=== PATIENT | female | born 1995 | race Caucasian/White ===

== ENCOUNTER 2017-03-15 13:49 | Emergency (ER) | payer SELFPAY ==
[2017-03-15 13:50] VITALS: BP 142/83; PULSE 107; RESP 14; TEMP 99.2; O2SAT 99
--- NOTE | 2017-03-15 14:31 | PD ---
Physical Exam Date Seen by Provider: Mar 15, 2017 Time Seen by Provider: 14:29 Data Data Last Documented VS Vital Signs Date Time Temp Pulse Resp B/P Pulse Ox O2 Delivery O2 Flow Rate FiO2 03/15/17 13:50 99.2 107 14 142/83 99 MDM Supervised Visit with ZACKERY: No Narrative Course 21 YO F with complaint 10/ constant, stabbing lower abdominal pain x 1 week, worsened yesterday. --F/C, N/V/D. LMP 19 February. Vitals reviewed. Seen in triage, awaiting bed placement. Yeimi Landeros Mar 15, 2017 14:31
[2017-03-15] MEDS ORDERED: METR-1 PO (21:43)
[2017-03-15] MEDS ORDERED: HYDR-3533 PO (21:43)
== END 2017-03-15 17:30 | disposition left against medical advice (07) ==
LOC: EDBD → NED 13:49
DX: R10.30 Lower abdominal pain, unspecified (principal); Z53.21 Procedure and treatment not carried out due to patient leaving prior to being seen by health care provider
CPT/HCPCS: 99281

== ENCOUNTER 2017-03-15 16:20 | Emergency (ER) | payer OTHER ==
[~2017-03-15] VITALS: Ht 172.7 cm; Wt 72.0 kg
[2017-03-15 16:27] VITALS: BP 116/75; PULSE 84; RESP 16; TEMP 98.3; O2SAT 98
[2017-03-15 16:36] LABS: BLOOD, URINE NEG (NEG); GLUCOSE,URINE NEG (NEG); KETONE, URINE NEG (NEG); NITRITE,URINE NEG (NEG); PH, URINE 6.5 (5.0-8.5)
[2017-03-15 16:39] LABS: METHOD OF COLLECTION CLEAN CATCH; URINE COLOR YELLOW (YELLW/STRAW)
[2017-03-15 16:42] LABS: BACTERIA, URINE FEW /hpf; COMMENT (UR) CULT NOT INDICATED; COMMENT2 (UR) MUCOUS PRESENT; CULTURE IF INDICATED CULT NOT INDICATED; SQUAMOUS EPITHELIAL CELL URINE > 8 /hpf (0-5)
--- NOTE | 2017-03-15 16:53 | PD ---
HPI Chief Complaint: Abdominal Pain Time Seen by Provider: 16:41 Travel History International Travel<30 days: No Contact w/Intl Traveler<30days: No Traveled to known affect area: No History of Present Illness HPI 21-year-old female here for evaluation of worsening lower abdominal cramping over the last 4 days. Pain is described as cramping, moderate to severe, sometimes better when she lays in the position with a heating pack over her lower abdomen. No history of abdominal surgeries. Her last mental period was 3 weeks ago. She denies vaginal bleeding or discharge. No urinary symptoms. No fevers or chills. No nausea or vomiting. She is sexually active with one partner and believe she is in a monogamous relationship. PFSH Past Medical History ?: Not LMP: 2.5 WEEKS Social History Tobacco Use: No (quit one year ago) Allergies-Medications (Allergen,Severity, Reaction): Uncoded Allergies: midol (Adverse Reaction, Intermediate, heart races, 03/15/17) Reported Meds & Prescriptions Reported Meds & Active Scripts Active Lortab (Hydrocodone-Acetaminophen) 5-325 Mg Tab 1 Tab PO Q6H PRN Flagyl (Metronidazole) 500 Mg Tab 500 Mg PO BID 7 Days Review of Systems Except as stated in HPI: all other systems reviewed are Neg Physical Exam Narrative GENERAL: Well-developed, well-nourished, comfortable, no acute distress. SKIN: Focused skin assessment warm/dry. HEAD: Atraumatic. Normocephalic. EYES: Pupils equal and round. No scleral icterus. No injection or drainage. ENT: Mucous membranes pink and moist. CARDIOVASCULAR: Regular rate and rhythm. No murmur appreciated. RESPIRATORY: No accessory muscle use. Clear to auscultation. Breath sounds equal bilaterally. GASTROINTESTINAL: Abdomen soft, nondistended. Mild to moderate suprapubic tenderness/lower abdominal tenderness without peritoneal signs. Rest of abdomen is soft and nontender. Normal bowel sounds. LOCAL TRUCK DRIVER: Exam performed in the presence of female nurse. Normal external genitalia. Normal cervix. Scant/whitish/oye-rfbc-hiwjqowg vaginal discharge. No adnexal masses. No CMT. Mild uterine tenderness. MUSCULOSKELETAL: No obvious deformities. No clubbing. No cyanosis. No edema. NEUROLOGICAL: Awake and alert. No obvious cranial nerve deficits. Motor grossly within normal limits. Normal speech. PSYCHIATRIC: Appropriate mood and affect; insight and judgment normal. Data Data Last Documented VS Vital Signs Date Time Temp Pulse Resp B/P Pulse Ox O2 Delivery O2 Flow Rate FiO2 03/15/17 21:49 78 17 99 03/15/17 21:20 124/70 Room Air 03/15/17 16:27 98.3 Orders Urinalysis - C+S If Indicated (03/15/17 16:29) Ed Urine Pregnancytest Poc (03/15/17 16:37) Beta Hcg (Quant/Titer) (03/15/17 17:04) Complete Blood Count With Diff (03/15/17 17:04) Comprehensive Metabolic Panel (03/15/17 17:04) Prothrombin Time / Inr (Pt) (03/15/17 17:04) Act Partial Throm Time (Ptt) (03/15/17 17:04) Ct Abd/Pel W Iv Contrast(Rout) (03/15/17 17:04) Iv Access Insert/Monitor (03/15/17 17:04) Ecg Monitoring (03/15/17 17:04) Oximetry (03/15/17 17:04) Morphine Inj (Morphine Inj) (03/15/17 17:15) Sodium Chlor 0.9% 1000 Ml Inj (Ns 1000 M (03/15/17 17:04) Sodium Chloride 0.9% Flush (Ns Flush) (03/15/17 17:15) Oral Contrast - Adult (03/15/17 17:06) Ondansetron Inj (Zofran Inj) (03/15/17 17:15) Diatrizoate Liq ( Gastroview Liq) (03/15/17 17:13) Iohexol 350 Inj (Omnipaque 350 Inj) (03/15/17 18:36) Gc And Chlamydia Pcr (03/15/17 19:09) Wet Prep Profile (03/15/17 19:09) Us Pelvis Comp W Doppler (03/15/17 19:09) Ketorolac Inj (Toradol Inj) (03/15/17 19:15) Metronidazole (Flagyl) (03/15/17 21:45) Morphine Inj (Morphine Inj) (03/15/17 21:45) Labs Laboratory Tests Test 03/15/17 03/15/17 03/15/17 16:26 17:25 19:30 Urine Collection Type CLEAN CATCH Urine Color YELLOW Urine Turbidity SLIGHT Urine pH 6.5 Urine Specific [place] 1.025 Urine Protein NEG mg/dL Urine Glucose (UA) NEG mg/dL Urine Ketones NEG mg/dL Urine Occult Blood NEG Urine Nitrite NEG Urine Bilirubin NEG Urine Leukocyte Esterase TRACE Urine WBC 3-5 /hpf Urine Squamous Epithelial > 8 /hpf Cells Urine Amorphous Sediment LARGE Urine Bacteria FEW /hpf Microscopic Urinalysis Comment CULT NOT INDICATED Urine Collection Time 1626 White Blood Count 8.9 TH/MM3 Red Blood Count 4.29 MIL/MM3 Hemoglobin 13.4 GM/DL Hematocrit 38.8 % Mean Corpuscular Volume 90.6 FL Mean Corpuscular Hemoglobin 31.3 PG Mean Corpuscular Hemoglobin 34.5 % Concent Red Cell Distribution Width 12.6 % Platelet Count 312 TH/MM3 Mean Platelet Volume 6.5 FL Neutrophils (%) (Auto) 72.7 % Lymphocytes (%) (Auto) 20.2 % Monocytes (%) (Auto) 4.8 % Eosinophils (%) (Auto) 1.2 % Basophils (%) (Auto) 1.1 % Neutrophils # (Auto) 6.5 TH/MM3 Lymphocytes # (Auto) 1.8 TH/MM3 Monocytes # (Auto) 0.4 TH/MM3 Eosinophils # (Auto) 0.1 TH/MM3 Basophils # (Auto) 0.1 TH/MM3 CBC Comment DIFF FINAL Differential Comment Prothrombin Time 12.7 SEC Prothromb Time International 1.1 RATIO Ratio Activated Partial 28.0 SEC Thromboplast Time Sodium Level 142 MEQ/L Potassium Level 3.7 MEQ/L Chloride Level 105 MEQ/L Carbon Dioxide Level 28.2 MEQ/L Anion Gap 9 MEQ/L Blood Urea Nitrogen 13 MG/DL Creatinine 0.80 MG/DL Estimat Glomerular Filtration 91 ML/MIN Rate Random Glucose 84 MG/DL Calcium Level 8.4 MG/DL Total Bilirubin 0.3 MG/DL Aspartate Amino Transf 17 U/L (AST/SGOT) Alanine Aminotransferase 22 U/L (ALT/SGPT) Alkaline Phosphatase 68 U/L Total Protein 7.3 GM/DL Albumin 3.9 GM/DL Human Chorionic Gonadotropin, LESS THAN 1 Quant MIU/ML Clue Cells (Wet Prep) PRESENT Vaginal Trichomonas (Wet Prep) NONE SEEN Vaginal Yeast (Wet Prep) NONE SEEN Chlamydia trachomatis DNA DETECTED (PCR) Neisseria gonorrhoeae DNA NOT DETECTED (PCR) [facility] Medical Decision Making Medical Screen Exam Complete: Yes Emergency Medical Condition: Yes Differential Diagnosis Appendicitis, UTI, cystitis, colitis, irritable bowel syndrome, ovarian cyst, ovarian torsion, , ectopic Narrative Course Vital signs show heart rate 84, blood pressure 116/75, pulse ox 98% on room air , oral temp of 98.3F. CBC is essentially unremarkable. CMP is unremarkable. Beta hCG is negative. UA shows trace leukocyte esterase, greater than 8 epithelial cells, few bacteria , not suggestive of UTI. CT abdomen pelvis: CONCLUSION: 1. No definite acute finding is identified in the abdomen or pelvis. 2. However, there is a small volume of free fluid in the posterior cul-de-sac within the pelvis that appears possibly complex or the appearance could be related to enhancing right ovary within the fluid. If the patient is having any pelvic symptoms consider further characterization with transabdominal/ transvaginal pelvis ultrasound. Patient was made aware of all findings. Pelvic ultrasound will be performed in the emergency department and she is still having some pain after receiving morphine. Wet prep is positive for clue cells, negative for yeast, negative for Trichomonas. Pelvic ultrasound: CONCLUSION: Small volume of simple free fluid in the pelvis. Otherwise, no acute finding is identified. Patient was made aware of all findings. She is resting comfortably. She is still having slight pain. I will give her one more dose of pain medication and will give her a dose of Flagyl here as well as a prescription to take home. Patient is stable for discharge home with outpatient follow-up with an [employer] [employer] doctor this week. She was informed on when to return to the emergency department which verbalizes understanding and agreement with plan. Diagnosis Primary Impression: Bacterial vaginosis Additional Impression: Abdominal pain Qualified Code: R10.30 - Lower abdominal pain Referrals: Maryana Brower MD 3 days [facility] Primary Care Physician 3 days Additional Instructions: Follow-up with a primary care physician this week. Follow-up with plastics nurse Dr. Brower or plastics nurse of your choice this week. Return to the emergency department for worsening symptoms or any other concerns. Scripts Hydrocodone-Acetaminophen (Lortab)5-325 Mg Tab1 Tab PO Q6H PRN (PAIN) #15 TAB Ref 0 Prov:Spencer West MD 03/15/17 Metronidazole (Flagyl)500 Mg Zbh103 Mg PO BID 7 Days Ref 0 Prov:Spencer West MD 03/15/17 Disposition: 01 DISCHARGE HOME Condition: Stable Spencer West MD Mar 15, 2017 16:53
[2017-03-15 17:07] VITALS: RESP 16; O2SAT 99
[2017-03-15] MEDS ORDERED: DIATRIZOATE MEGLUM/DIATRIZOATE SOD 9 ML CUP ONE (17:13)
[2017-03-15] MEDS ORDERED: MORPHINE SULFATE 4 MG/ML INJ IV PUSH ONE ×2 (17:15→21:45)
[2017-03-15] MEDS ORDERED: SODIUM CHLORIDE 0.9% FLUSH 10 ML FLUSH IV FLUSH PRN (17:15)
[2017-03-15] MEDS ORDERED: ONDANSETRON HCL 4 MG/2 ML VIAL IV PUSH ONE (17:15)
[2017-03-15] MEDS: SODIUM CHLOR 0.9% 1000 ML INJ 1,000 ML IV SCH ×2 (17:25→19:28)
[2017-03-15 17:30] VITALS: BP 131/69; PULSE 76; RESP 16; O2SAT 99
[2017-03-15 17:31] LABS: AUTOMATED NEUTROPHIL # 6.5 TH/MM3 (1.8-7.7); BASOPHIL # 0.1 TH/MM3 (0-0.2); BASOPHIL % 1.1 % (0.0-2.0); EOSINOPHIL # 0.1 TH/MM3 (0-0.4); EOSINOPHIL % 1.2 % (0.0-4.0); HEMATOCRIT 38.8 % (35.0-46.0); HEMO FLAGS DIFF FINAL; LYMPH % 20.2 % (9.0-44.0); LYMPHOCYTE # 1.8 TH/MM3 (1.0-4.8); MEAN CELL VOLUME 90.6 FL (80.0-100.0); MEAN CORPUSCULAR HEMOGLOBIN 31.3 PG (27.0-34.0); MEAN CORPUSCULAR HGB CONC 34.5 % (32.0-36.0); MONO % 4.8 % (0.0-8.0); NEUT % 72.7 % (16.0-70.0); PLATELET COUNT 312 TH/MM3 (150-450); RED BLOOD COUNT 4.29 MIL/MM3 (4.00-5.30); RED CELL DISTRIBUTION WIDTH 12.6 % (11.6-17.2); WHITE BLOOD COUNT 8.9 TH/MM3 (4.0-11.0)
[2017-03-15 17:39] LABS: CHLORIDE 105 MEQ/L (98-107); POTASSIUM 3.7 MEQ/L (3.5-5.1); SODIUM (NA) 142 MEQ/L (136-145)
[2017-03-15 17:43] LABS: ANION GAP 9 MEQ/L (5-15); BICARBONATE 28.2 MEQ/L (21.0-32.0); BLOOD UREA NITROGEN 13 MG/DL (7-18)
[2017-03-15 17:45] LABS: INTERNATIONAL NORMALIZED RATIO 1.1 RATIO; PROTHROMBIN TIME - PATIENT 12.7 SEC (9.8-11.6)
[2017-03-15 17:46] LABS: ALT (GPT) 22 U/L (10-53); AST (GOT) 17 U/L (15-37); GLOMERULAR FILTRATION RATE 91 ML/MIN (>89)
[2017-03-15 17:47] LABS: TOTAL BILIRUBIN ADULT 0.3 MG/DL (0.2-1.0)
[2017-03-15 17:49] LABS: ALKALINE PHOSPHATASE 68 U/L (45-117)
[2017-03-15 17:51] LABS: BETA HCG QUANT LESS THAN 1 MIU/ML (0-5)
[2017-03-15] MEDS ORDERED: IOHEXOL 350 MG/ML 10 ML VIAL (for RAD DIAG) IV ONE (18:36)
--- NOTE | 2017-03-15 19:03 | RADRPT ---
EXAM DATE/TIME: 03/15/2017 18:26 [facility] COMPARISON: No previous studies available for comparison. INDICATIONS : Abdominal pain. IV CONTRAST: 100 cc Omnipaque 350 (iohexol) IV ORAL CONTRAST: Prescribed oral contrast ingested. RADIATION DOSE: 8.92 CTDIvol (mGy) MEDICAL HISTORY : None SURGICAL HISTORY : None. ENCOUNTER: Initial ACUITY: 4 - 6 days PAIN SCALE: 8/10 LOCATION: lower quadrant abdomen TECHNIQUE: Volumetric scanning of the abdomen and pelvis was performed. Using automated exposure control and ad justment of the mA and/or kV according to patient size, radiation dose was kept as low as reasonably achievable to obtain optimal diagnostic quality images. FINDINGS: LOWER LUNGS: The visualized lower lungs are clear. LIVER: Homogeneous density without lesion. There is no dilation of the biliary tree. No calcified gallston es. SPLEEN: Normal size without lesion. PANCREAS: Within normal limits. KIDNEYS: Normal in size and shape. There is no mass, stone or hydronephrosis. ADRENAL GLANDS: Within normal limits. VASCULAR: There is no aortic aneurysm. BOWEL/MESENTERY: The stomach, small bowel, and colon demonstrate no acute abnormality. There is no free intraperitone al air. There is a small volume of free fluid in the posterior cul-de-sac that appears mildly complex . The appendix is normal. ABDOMINAL WALL: Within normal limits. RETROPERITONEUM: There is no lymphadenopathy. BLADDER: No wall thickening or mass. REPRODUCTIVE: Uterus and left adnexa a normal appearance. There is a small view of volume of free fluid in the post erior cul-de-sac with areas of enhancement within the fluid which could be related to complexity or c ould be associated with the right ovary. INGUINAL: There is no lymphadenopathy or hernia. MUSCULOSKELETAL: Within normal limits for patient age. CONCLUSION: 1. No definite acute finding is identified in the abdomen or pelvis. 2. However, there is a small volume of free fluid in the posterior cul-de-sac within the pelvis that appears possibly complex or the appearance could be related to enhancing right ovary within the fluid . If the patient is having any pelvic symptoms consider further characterization with transabdominal/ transvaginal pelvis ultrasound. Roddy Cooley MD on March 15, 2017 at 18:55 Board Certified Radiologist. This report was verified electronically.
[2017-03-15 19:10] VITALS: BP 131/69; PULSE 82; RESP 18; O2SAT 98
[2017-03-15] MEDS ORDERED: KETOROLAC TROMETHAMINE 30 MG/ML (IVP) VIAL IV PUSH ONE (19:15)
[2017-03-15 20:29] VITALS: BP 128/81; PULSE 81; RESP 17; O2SAT 98
[2017-03-15 21:20] VITALS: BP 124/70; PULSE 78; RESP 16; O2SAT 98
--- NOTE | 2017-03-15 21:30 | RADRPT ---
EXAM DATE/TIME: 03/15/2017 19:56 [facility] COMPARISON: CT ABDOMEN & PELVIS W CONTRAST, March 15, 2017, 18:26. INDICATIONS : Pelvic pain. MEDICAL HISTORY : Pelvic pain. SURGICAL HISTORY : None. ENCOUNTER: Initial ACUITY: 4-6 days PAIN SCORE: 8/10 LOCATION: Bilateral pelvis MEASUREMENTS: UTERUS: 7.6 x 4.6 x 3.4 cm ENDOMETRIAL STRIPE: 12 mm RIGHT OVARY: 3.8 x 3.7 x 2.5 cm LEFT OVARY: 2.8 x 2.3 x 1.9 cm FINDINGS: UTERUS: The myometrium has homogeneous echotexture without mass. RIGHT OVARY: Ovary contains no mass or significant cystic lesion. Blood flow is documented. LEFT OVARY: Ovary contains no mass or significant cystic lesion. Blood flows document. MISCELLANEOUS: There is a small amount of free fluid in the posterior cul-de-sac and adnexal regions. CONCLUSION: Small volume of simple free fluid in the pelvis. Otherwise, no acute finding is identified. Roddy Cooley MD on March 15, 2017 at 21:27 Board Certified Radiologist. This report was verified electronically.
[2017-03-15] MEDS ORDERED: METR-1 PO (21:43)
[2017-03-15] MEDS ORDERED: HYDR-3533 PO (21:43)
[2017-03-15] MEDS ORDERED: metroNIDAZOLE 500 MG TAB PO ONE (21:45)
[2017-03-16 01:20] LABS: CHLAMYDIA PCR DETECTED (NOT DETECT); NEISSERIA PCR NOT DETECTED (NOT DETECT)
== END 2017-03-15 22:02 | disposition home or self-care (01) ==
LOC: EDBD → PHED 16:20
DX: N76.0 Acute vaginitis (principal); R10.30 Lower abdominal pain, unspecified; Z87.891 Personal history of nicotine dependence
CPT/HCPCS: 74177; 76856; 80053; 81001; 84702; 84703; 85025; 85610; 85730; 87210; 87491; 87591; 93975; 96361; 96374; 96375; 99285; J1885; J2270; J2405; J7030; Q9963; Q9967

== ENCOUNTER 2017-09-08 09:29 | Emergency (ER) | payer OTHER ==
[~2017-09-08] VITALS: Ht 172.7 cm; Wt 75.0 kg
[~2017-09-08 09:29] MED LIST: HYDR-3533 PO; METR-1 PO
[2017-09-08 09:35] VITALS: BP 134/86; PULSE 126; RESP 18; TEMP 98.7; O2SAT 97
[2017-09-08] MEDS ORDERED: CYCLOBENZAPRINE HCL 10 MG TAB PO ONE (09:45)
[2017-09-08] MEDS ORDERED: NAPROXEN 500 MG TAB PO ONE (09:45)
--- NOTE | 2017-09-08 09:53 | PD ---
HPI Chief Complaint: Musculoskeletal Complaint Time Seen by Provider: 09:40 Travel History International Travel<30 days: No Contact w/Intl Traveler<30days: No Traveled to known affect area: No History of Present Illness HPI Patient comes in with concerns for possible right shoulder dislocation. Patient states she symptoms started around 6 PM while she was lifting weights when incident occurred. Patient states that she lifted a 25 pound weight above her head and drop straight to the floor with it in her hand causing the injury. The patient describes achiness between her right shoulder and neck. Pain is worse with certain movement. Patient states that she took 3 baths for this without improvement of symptoms. Patient denies any chest pain, shortness of breath, neck pain, fevers, numbness or tingling anywhere, weakness, , or radiation of the pain. PFSH Past Medical History Medical History: Denies Significant Hx Diminished Hearing: No Tetanus Vaccination: Unknown ?: Not LMP: 08/25/17 Social History Alcohol Use: Yes (socially beer) Tobacco Use: Yes Substance Use: No Allergies-Medications (Allergen,Severity, Reaction): Uncoded Allergies: midol (Adverse Reaction, Intermediate, heart races, 03/15/17) Reported Meds & Prescriptions Reported Meds & Active Scripts Active Naprosyn (Naproxen) 500 Mg Tab 500 Mg PO Q12HR PRN Flexeril (Cyclobenzaprine HCl) 10 Mg Tab 10 Mg PO Q8HR PRN Review of Systems Except as stated in HPI: all other systems reviewed are Neg Physical Exam Narrative GENERAL: Well-developed, well nourished, in no acute distress, and non-ill appearing. SKIN: Focused skin assessment warm and dry. HEAD: Atraumatic. Normocephalic. EYES: Pupils equal and round. EOMI. No scleral icterus. No injection or drainage. ENT: No nasal bleeding or discharge. Mucous membranes pink and moist. NECK: Trachea midline. Supple. No nuclear rigidity. CARDIOVASCULAR: Radial pulses 2+, intact, and equal bilaterally. Capillary refill less than 2 seconds. RESPIRATORY: No accessory muscle use. No respiratory distress. MUSCULOSKELETAL: No obvious deformities. No clubbing. No cyanosis. No edema. Decreased range of motion right shoulder secondary to pain. Shoulder:FROM equal BL with passive flexion, extension, Adduction, internal/external rotation, and pronation/supination. Sensation equal BL deltoid muscles. Pulses equal BL distal to injury. Capillary refill less than 2 seconds distal to injury and equal BL. FROM distal to injury and equal BL. Strength distal to injury equal BL. NV intact distal to injury equal BL. Flexion and extension of thumb equal BL. Equal strength and movement with abduction/adductions of BL fingers. Squash Centre Manager strength equal BL. Patient reports pain to palpation over right trapezius shoulder. There is no crepitus. NEUROLOGICAL: Awake and alert. No obvious cranial nerve deficits. Motor grossly within normal limits. Normal speech. PSYCHIATRIC: Appropriate mood and affect; insight and judgment normal. Data Data Last Documented VS Vital Signs Date Time Temp Pulse Resp B/P (MAP) Pulse Ox O2 Delivery O2 Flow Rate FiO2 09/08/17 09:35 98.7 126 18 134/86 (102) 97 Orders Orders Naproxen (Naprosyn) (09/08/17 09:45) Cyclobenzaprine (Flexeril) (09/08/17 09:45) Shoulder, Complete (>2vws) (09/08/17 ) Ice/Cold Pack (09/08/17 09:46) Ed Discharge Order (09/08/17 10:25) [facility] Medical Decision Making Medical Screen Exam Complete: Yes Emergency Medical Condition: Yes Differential Diagnosis Fracture, strain, dislocation Narrative Course There is no clinical evidence for fracture. There is no clinical evidence to suspect bony injury by exam. Radiographic examination revealed no fracture or dislocation seen at this time. No obvious ligamental injury or internal derangement is noted at this time. The distal extremity appears neurovascularly intact, without evidence of neurovascular injury nor compartment syndrome. Tendon exam also was intact. The patient was discharged on pain medication along with strain care instructions and given warnings for vascular compromise. The patient is to follow up with Orthopedics and/or her primary care provider. The patient agrees with plan. Patient in no obvious distress upon re-evaluation. All pertinent Radiology result(s) discussed with patient. Patient was asked if they wanted to speak to my attending, which the patient did not wish to do at this time. Any questions/ concerns in reference to patient diagnosis/condition discussed and clarified prior to patient's discharge. Reinforced sheer importance of close follow up with patient's primary physician or primary care clinic and/or orthopedic. Instructed patient to return to ED immediately, if symptoms return/worsen. Patient showed understanding of above instructions. Further instructions and recommendations were detailed in discharge paperwork. Patient ambulated without difficulty out of ED at discharge. Diagnosis Primary Impression: Right shoulder strain Qualified Codes: S46.911A - Strain of unspecified muscle, fascia and tendon at shoulder and upper arm level, right arm, initial encounter Referrals: Syed Amaral MD Patient Instructions: General Instructions, Muscle Strain (ED), Musculoskeletal Pain (ED) Additional Instructions: Follow-up with your primary care physician and/or orthopedic next week for reevaluation. Take all medication as prescribed. Return to the emergency department if symptoms get worse. Med/Other Pt SpecificInfo: Prescription(s) given Scripts Naproxen (Naprosyn) 500 Mg Tab 500 MG PO Q12HR Y for PAIN SCALE 1 TO 10, #14 TAB 0 Refills Prov: Charlene Soler DO 09/08/17 Cyclobenzaprine (Flexeril) 10 Mg Tab 10 MG PO Q8HR Y for MUSCLE PAIN, #15 TAB 0 Refills Prov: Charlene Soler DO 09/08/17 Disposition: 01 DISCHARGE HOME Condition: Stable Chilo Evans Sep 08, 2017 09:53
--- NOTE | 2017-09-08 10:21 | RADRPT ---
EXAM DATE/TIME: 09/08/2017 09:48 [facility] COMPARISON: No previous studies available for comparison. INDICATIONS : Right shoulder pain after lifting a 25 lb weight. Pain when lifting arm over head. MEDICAL HISTORY : None. SURGICAL HISTORY : None. ENCOUNTER: Initial ACUITY: 2 days PAIN SCORE: 7/10 LOCATION: Right shoulder FINDINGS: Multiple view examination of the right shoulder demonstrates no evidence of fracture or dislocation. The glenohumeral and acromioclavicular joints are maintained. There is normal range of motion betwe en internal and external rotation. Bony mineralization is normal. CONCLUSION: Normal examination for a patient of this age. Khalif Estrada MD on September 08, 2017 at 10:18 Board Certified Radiologist. This report was verified electronically.
[2017-09-08] MEDS ORDERED: NAPR500 PO (10:22)
[2017-09-08] MEDS ORDERED: CYCL10TA PO (10:22)
== END 2017-09-08 10:42 | disposition home or self-care (01) ==
LOC: PHED 09:29
DX: S46.911A Strain of unspecified muscle, fascia and tendon at shoulder and upper arm level, right arm, initial encounter (principal); Y93.B3 Activity, free weights
CPT/HCPCS: 73030; 99283